=== PATIENT | female | born 1950 | race Two or more races ===

== ENCOUNTER 2025-01-02 05:57 | Day surgery (SDC) | payer OTHER, SELFPAY ==
[2024-12-10 10:01] VITALS: BMI 21.6
[2024-12-10 11:36] LABS: Hematocrit 39.4 % (37.0-47.0); Hemoglobin 13.5 g/dL (12.0-16.0); Mean Corp Hgb Conc. 34.3 g/dL (33.0-37.0); Mean Corpuscular Hgb 30.1 pg (27.0-31.0); Mean Corpuscular Volume 87.9 fL (81.0-99.0); Mean Platelet Volume 10.2 fL (7.4-10.4); Platelet Count 167 10^3/uL (130-400); Red Blood Cell Count 4.48 10^6/uL (4.20-5.40); Red Cell Dist. Width 12.6 % (11.5-14.5); White Blood Cell Count 6.4 10^3/uL (4.8-10.8)
[2024-12-10 12:02] LABS: ALT (SGPT) 28 U/L (0-35); AST (SGOT) 32 U/L (14-36); Albumin 4.1 g/dl (3.5-5.0); Alkaline Phosphatase 71 U/L (38-126); Blood Urea Nitrogen 10 mg/dl (7-17); Calcium 9.5 mg/dl (8.4-10.2); Carbon Dioxide 30 mmol/L (22-30); Chloride 98 mmol/L (98-107); Estimated Creatinine Clearance 58 ml/min; Glucose 78 mg/dl (70-99); Sodium 136 mmol/L (135-145); Total Protein 6.2 g/dl (6.3-8.2); eGFR > 60.00
[2024-12-10 12:06] LABS: Glycohemoglobin (HgbA1c) 5.2 % (4.0-5.6)
--- NOTE | 2024-12-10 14:21 | CM ---
CM reviewed medical records. Patient confirmed demographics. Patient lives independently with . Patient does not have a history of VN< SNF. Patient confirmed that she has the appropriate DME in the home. Patient has a cane and walker.
Patient is active with her PCP. Patient uses [facility] for medication services.
Patient is agreeable to [facility]. Patient was updated that she would be seen by VN for three days post operatively. Patient confirmed she has a PT facility in [place] that she plans to use and will make an appointment following her surgery.
PLAN: home with VN, with plan to transition to Outpatient PT
[2024-12-10 16:08] VITALS: BMI 21.6
--- NOTE | 2024-12-20 13:26 | VNURNOTE ---
Patient is scheduled for an elective R TKA on 01/02 - she is a same day patient. Spoke with patient prior to surgery. Introduced role of [facility] Liaison. Patient reports that she lives w/her spouse.
She has a commode, cane and rolling walker.
PCP is Dr waters
Discussed [facility] joint protocol and post surgical plans.
Reviewed that she will have VN services initially and will then start outpatient PT.
Patient selects [facility] for her home care needs and will go to outpatient PT in [place]. Scheduled for 01/07.
Patient is in agreement with plan and states that her spouse will be home with her. Advised to bring RW with her day of surgery. Referral placed in [facility].
Plan: [facility] per [facility] joint protocol 01/02 then outpt PT on 01/07
[2025-01-02] VITALS (13 sets, daily range): BP systolic 109–142; BP diastolic 44–55; PULSE 59; O2SAT 99
[2025-01-02] MEDS: TYLENOL 650 MG PO (06:31)
[2025-01-02] MEDS: CELEBREX 200 MG PO (06:31)
[2025-01-02] MEDS: ANCEF 5 IV (10:56)
== END 2025-01-02 11:31 | disposition home health service (06) ==
LOC: SDS 05:57
PROVIDERS: ATTENDING PHYSICIAN Orthopaedic Surgery; FAMILY PHYSICIAN Internal Medicine; OTHER PHYSICIAN Physician Assistant Medical; REFERRING PHYSICIAN Internal Medicine Cardiovascular Disease
DX: M17.11 Unilateral primary osteoarthritis, right knee (principal)
CPT/HCPCS: 27447; 36415; 73560; 80053; 83036; 85027; 87070; 97162; 97530; C1713; C1776